=== PATIENT | female | born 1995 | race Caucasian/White ===

== ENCOUNTER 2021-04-12 09:40 | Inpatient (IN) | payer MEDICAID ==
[2021-04-12] MEDS ORDERED: Ampicillin 2 GM in Sodium Chloride 0.9% 100 ML IV ONE (10:33)
[2021-04-12] MEDS ORDERED: Nalbuphine 10 MG/1 ML Vial IVPUSH PRN (10:33)
[2021-04-12] MEDS ORDERED: Sodium Chloride 0.9% 10 ML Syringe FLUSH PRN (10:33)
[2021-04-12] MEDS ORDERED: Oxytocin/Lactated Ringers 10 UNIT/1,000 ML BAG IV SCH ×2 (10:45)
[2021-04-12] MEDS: Lactated Ringers 1,000 ML IV SCH ×2 (11:25→20:45)
--- NOTE | 2021-04-12 12:07 | PCM.LDHP ---
L&D History of Present Illness - General Date of Service: 04/12/21 Admit Problem/Dx: Patient Status Order with Admit Dx/Problem 04/12/21 10:33 Patient Status [ADT] Routine Admission Diagnosis/Problem Admission Diagnosis/Problem Source of Information: Patient History Limitations: Reports: No Limitations - History of Present Illness Introduction:: Sydney Ramsey is a 25-year-old -1-1-1 female at 37 weeks 5 days (NOEMI 04/28/2021) by a 20-week ultrasound who presents with spontaneous rupture of membranes. She reports that this morning at around 4 AM she got up out of bed and went to the restroom and then went to the kitchen for some water and had a large gush of clear fluid when she was in the kitchen. She has had continuous leaking of fluid since then. She describes the fluid as a clear color and no odor to it. She denies any vaginal bleeding. She denies any significant contractions or cramping since her water has broken. She reports good movement. Timing/Duration: Reports: sudden onset (With large gush of fluid at around 4 AM), constant/continuous (Leaking of fluid since the initial gush of fluid) Location, : Reports: Pelvic, Uterus Quality: Reports: Pressure Severity: Mild Improves with: Reports: None Worsens with: Reports: None Associated Symptoms: Reports: vaginal fluid, large amount. Denies: vaginal bleeding, vaginal discharge Present Illness Comments:: Sydney Ramsey is a 25-year-old -1-1-1 female at 37 weeks 5 days (NOEMI 04/28/2021) by a 20-week ultrasound who presents with spontaneous rupture of membranes. She has had routine care with Dr. Escobar starting at 18 weeks gestational age. She had her final due date based on a 20-week ultrasoun d. She has not had any significant complications during this . Her care is with Dr. 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 G1: SAB in 2018 G2: 03/05/2020, at 28 weeks 2 days, 2 pounds 12.1 ounces, female infant, epidural for anesthesia, prelabor rupture of membranes with onset of labor within 24 hours labs Blood type: O+ Antibody screen: Negative Rubella status: Immune Hepatitis B surface antigen: Negative RPR: Negative Hepatitis C: Negative HIV: Negative Gonorrhea: Negative Chlamydia: Negative One hour glucose tolerance test: 105 Second trimester hemoglobin: 12.2 on 12/23/2020 Platelets: 216 on 12/23/2020 GBS status: Positive on swab on 04/07/2021 - Related Data Allergies/Adverse Reactions: Allergies Allergy/AdvReac Type Severity Reaction Status Date / Time No Known Allergies Allergy Verified 04/12/21 10:31 Home Medications: Home Meds 105/Iron/Folic AC/Dha [Prena1 True Combo Pack] 1 tab PO DAILY 04/12/21 [History] Past Medical History - Past Health History Medical/Surgical History: Denies Medical/Surgical History 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: Reports: : 3 Para: 1 - Past Surgical History HEENT Surgical History: Reports: Adenoidectomy, Tonsillectomy Musculoskeletal Surgical History: Reports: Arthroscopic Procedure (Left knee surgery) Social & Family History - Tobacco Use Tobacco Use Status *Q: Former Tobacco User Tobacco Use Within Last Twelve Months: Cigarettes Used Tobacco, but Quit: Yes - Tobacco Core Measures Tobacco Use/Smoking Within Last 30 Days: No Smokeless Tobacco Use in Last 30 Days: No - Alcohol Use Alcohol Use History: No - Recreational Drug Use Recreational Drug Use: No Drug Use in Last 12 Months: No - Living Situation & Occupation Living situation: Reports: Single, with Significant Other H&P Review of Systems - Review of Systems: Review Of Systems: See Below General: Denies: Fever, Chills, Malaise, Weakness, Fatigue HEENT: Denies: Headaches, Rhinitis, Post Nasal Drip, Sinus Congestion, Sore Throat, Visual Changes Pulmonary: Denies: Shortness of Breath, Wheezing, Pleuritic Chest Pain, Cough Cardiovascular: Denies: Chest Pain, Palpitations, Dyspnea on Exertion, Orthopnea Gastrointestinal: Denies: Abdominal Pain, Constipation, Diarrhea, Nausea, Vomiting Genitourinary: Denies: Dysuria, Frequency, Burning, Pain, Urgency Musculoskeletal: Reports: Back Pain (and hip pain of ) Skin: Denies: Rash, Lesions Psychiatric: Denies: Depression, Anxiety L&D Exam - Exam Exam: See Below - Vital Signs Weight: 87.997 kg - OB Specific Contraction Duration (sec): 45-75 Contraction Frequency (min): 1-5 Contraction Intensity: Mild to Moderate Movement: Active Heart Tones: Present Heart Tones per Min: 130 (+15 x 15 accelerations, no decelerations) Heart Rate (FHR) Variability: Moderate (6-25 bmp) Presentation: Vertex Estimated Weight: 6.5-7 pounds by Shakir's - Alegria Score Alegria Score Cervix Position: Posterior Alegria Score Consistency: Soft Alegria Score Effacement: 51-70% (70%) Alegria Score Dilation: > 5 cm (5 cm) Alegria Score 's Station: -3 Alegria Score Total: 7 - Exam General: Alert, Oriented HEENT: Conjunctiva Clear, EOMI Neck: Supple, Trachea Midline Lungs: Clear to Auscultation, Normal Respiratory Effort Cardiovascular: Regular Rate, Regular Rhythm GI/Abdominal Exam: Soft, Non-Tender, No Distention, Other (Gravid). No: Guardin g, Rigid, Rebound Genitourinary: Normal external exam Extremities: Normal Inspection, Non-Tender, Pedal Edema (1+ in bilateral lower extremities) Skin: Warm, Dry, Intact Psychiatric: Alert, Normal Affect, Normal Mood - Patient Data Lab Results Last 24 hrs: Laboratory Results - last 24 hr 04/12/21 04/12/21 04/12/21 Range/Units 10:25 10:50 10:52 WBC 9.19 (3.98-10.04) K/mm3 RBC 4.40 (3.98-5.22) M/mm3 Hgb 13.1 (11.2-15.7) gm/dl Hct 38.7 (34.1-44.9) % MCV 88.0 (79.4-94.8) fl MCH 29.8 (25.6-32.2) pg MCHC 33.9 (32.2-35.5) g/dl RDW Std Deviation 40.3 (36.4-46.3) fL Plt Count 231 (182-369) K/mm3 MPV 9.7 (9.4-12.3) fl Neut % (Auto) 72.7 H (34.0-71.1) % Lymph % (Auto) 19.4 (19.3-51.7) % Wirt % (Auto) 6.5 (4.7-12.5) % Eos % (Auto) 0.9 (0.7-5.8) Baso % (Auto) 0.1 (0.1-1.2) % Neut # (Auto) 6.68 H (1.56-6.13) K/mm3 Lymph # (Auto) 1.78 (1.18-3.74) K/mm3 Wirt # (Auto) 0.60 H (0.24-0.36) K/mm3 Eos # (Auto) 0.08 (0.04-0.36) K/mm3 Baso # (Auto) 0.01 (0.01-0.08) K/mm3 Urine Opiates Screen Negative (QMDMXC=452) Ur Buprenorphine Scrn Negative (CUTOFF=10) Ur Oxycodone Screen Negative (WSL6XW=556) Urine Methadone Screen Negative (BUGEGB=790) Ur Propoxyphene Screen Negative (LAMVLP=064) Ur Barbiturates Screen Negative (APBSLQ=487) Ur Tricyclics Screen Negative (OUVSHC=668) Ur Phencyclidine Scrn Negative (CUTOFF=25) Ur Amphetamine Screen Negative (YUQVDO=948) U Methamphetamines Scrn Negative (ZTCPPG=572) U Benzodiazepines Scrn Negative (CQPQIF=421) U Cocaine Metab Screen Negative (MDMKNA=542) U Marijuana (THC) Screen Negative (CUTOFF=50) SARS-CoV-2 RNA (LALI) Negative (NEGATIVE) Result Diagrams: 04/12/21 10:52 - Problem List (1) 37 weeks gestation of SNOMED Code(s): 24016438 ICD Code: Z3A.37 - 37 WEEKS GESTATION OF Status: Acute Current Visit: Yes (2) GBS (group B Streptococcus carrier), +RV culture, currently SNOMED Code(s): 7334410768827, 569876015, 8598401749567 ICD Code: O99.820 - STREPTOCOCCUS B CARRIER STATE COMPLICATING Status: Acute Current Visit: Yes (3) History of drug abuse SNOMED Code(s): 192763454 ICD Code: F19.11 - OTHER PSYCHOACTIVE SUBSTANCE ABUSE, IN REMISSION Status: Acute Current Visit: Yes (4) History of delivery SNOMED Code(s): 271554910 ICD Code: Z87.51 - PERSONAL HISTORY OF PRE-TERM LABOR Status: Acute Current Visit: Yes (5) History of delivery, currently in third trimester SNOMED Code(s): 04799906, 82924999 ICD Code: O09.893 - SUPERVISION OF OTHER HIGH RISK PREGNANCIES, THIRD TRIMESTER Status: Acute Current Visit: Yes Problem List Initiated/Reviewed/Updated: Yes Orders Last 24hrs: Active Orders 24 hr Category Date Time Status Patient Status [ADT] Routine ADT 04/12/21 10:33 Active Activity as Tolerated [RC] PFP Care 04/12/21 10:33 Active Communication Order [RC] ASDIRECTED Care 04/12/21 10:33 Active Heart Tones [RC] ASDIRECTED Care 04/12/21 10:34 Active Non Stress Test [RC] PER UNIT ROUTINE Care 04/12/21 10:33 Active Notify Provider [RC] PFP Care 04/12/21 10:33 Active Notify Provider [RC] PRN Care 04/12/21 10:33 Active Peripheral IV Care [RC] . DIRECTED Care 04/12/21 10:34 Active Pump Management, Intrathecal [RC] ASDIRECTED Care 04/12/21 10:35 Active Urinary Catheter Assessment [RC] ASDIRECTED Care 04/12/21 10:33 Active Vital Signs [RC] PER UNIT ROUTINE Care 04/12/21 10:33 Active Regular Diet [DIET] Diet 04/12/21 Breakfast Active RAPID PLASMA REAGIN,RPR [CHEM] Routine Lab 04/12/21 10:52 Received TYPE AND SCREEN [BBK] Stat Lab 04/12/21 10:52 Received Ampicillin 1 gm Med 04/12/21 14:00 Active Sodium Chloride 0.9% [Normal Saline] 100 ml IV Q4H Lactated Ringers [Ringers, Lactated] 1,000 ml Med 04/12/21 10:45 Active IV ASDIRECTED Nalbuphine [Nubain] Med 04/12/21 10:33 Active 10 mg IVPUSH Q2H PRN Oxytocin/Lactated Ringers [Pitocin in LR 10 Units/1,000 Med 04/12/21 10:45 Active ML] 10 unit in 1,000 ml IV .CONTINUOUS Oxytocin/Lactated Ringers [Pitocin in LR 10 Units/1,000 Med 04/12/21 10:45 Active ML] 10 unit in 1,000 ml IV TITRATE Sodium Chloride 0.9% [Saline Flush] Med 04/12/21 10:33 Active 10 ml FLUSH ASDIRECTED PRN Electronic Heart Tones Ext w TOCO [WOMSER] Oth 04/12/21 10:33 Ordered Routine Electronic Heart Tones Internal [WOMSER] Per Unit Oth 04/12/21 10:33 Ordered Routine Peripheral IV Insertion Adult [OM.PC] Routine Oth 04/12/21 10:33 Ordered Resuscitation Status Routine Resus Stat 04/12/21 10:33 Ordered Medication Orders Ampicillin Sodium 1 gm/ Sodium (Chloride) 100 mls @ 200 mls/hr IV Q4H HEATHER Oxytocin/Lactated Ringer's (Pitocin In Lr 10 Units/1,000 Ml) 10 unit in 1,000 mls @ 12 mls/hr IV TITRATE HEATHER; Protocol Oxytocin/Lactated Ringer's (Pitocin In Lr 10 Units/1,000 Ml) 10 unit in 1,000 mls @ 500 mls/hr IV .CONTINUOUS HEATHER Lactated Ringer's (Ringers, Lactated) 1,000 mls @ 100 mls/hr IV ASDIRECTED HEATHER Last Admin: 04/12/21 11:25 Dose: 100 mls/hr Documented by: SIDNEY Nalbuphine HCl (Nalbuphine 10 Mg/1 Ml Vial) 10 mg IVPUSH Q2H PRN PRN Reason: Pain Sodium Chloride (Sodium Chloride 0.9% 10 Ml Syringe) 10 ml FLUSH ASDIRECTED PRN PRN Reason: Keep Vein Open Assessment/Plan Comment:: Sydney Ramsey is a 25-year-old -1-1-1 female at 37 weeks 5 days with spontaneous rupture of membranes with complicated by GBS positive status, history of drug use, history of incarceration and history of delivery due to PPROM Refer to observation for spontaneous rupture of membranes Start Pitocin for augmentation of labor if contractions continue to be irregular and nonpainful and the patient is not making cervical change. Recommend for patient to start Pitocin at this time but patient is considering options. Continuous monitoring Place IV and have Lactated Ringer's at 125 ml/hr May have small amounts of regular diet Activity as tolerated May have epidural as desired Plans to pump breastmilk for feeding infant after delivery Patient started on ampicillin 2 g and to have 1 g every 4 hours after for GBS prophylaxis Anticipate vaginal delivery unless otherwise indicated Jens Adams MD 12:14 PM 04/12/2021
[2021-04-12] MEDS: Ampicillin 1 GM in Sodium Chloride 0.9% 100 ML IV SCH ×3 (15:31→23:20)
--- NOTE | 2021-04-12 19:10 | PCM.PNLD ---
Labor Progress Note - VS & Meds Vital Signs: Last Vital Signs Temp 37.0 C 04/12/21 10:33 Pulse 62 04/12/21 12:35 Resp BP 118/77 04/12/21 10:33 Pulse Ox Active Medications: Current Medications Ampicillin Sodium 1 gm/ Sodium (Chloride) 100 mls @ 200 mls/hr IV Q4H HEATHER Last Admin: 04/12/21 15:31 Dose: 200 mls/hr Documented by: Oxytocin/Lactated Ringer's (Pitocin In Lr 10 Units/1,000 Ml) 10 unit in 1,000 mls @ 12 mls/hr IV TITRATE HEATHER; Protocol Last Titration: 04/12/21 18:45 Dose: 12 munits/min, 72 mls/hr Documented by: Oxytocin/Lactated Ringer's (Pitocin In Lr 10 Units/1,000 Ml) 10 unit in 1,000 mls @ 500 mls/hr IV .CONTINUOUS HEATHER Lactated Ringer's (Ringers, Lactated) 1,000 mls @ 100 mls/hr IV ASDIRECTED HEATHER Last Admin: 04/12/21 11:25 Dose: 100 mls/hr Documented by: Nalbuphine HCl (Nalbuphine 10 Mg/1 Ml Vial) 10 mg IVPUSH Q2H PRN PRN Reason: Pain Sodium Chloride (Sodium Chloride 0.9% 10 Ml Syringe) 10 ml FLUSH ASDIRECTED PRN PRN Reason: Keep Vein Open Discontinued Medications Ampicillin Sodium 2 gm/ Sodium (Chloride) 100 mls @ 200 mls/hr IV ONETIME ONE Stop: 04/12/21 11:02 Last Admin: 04/12/21 11:26 Dose: 200 mls/hr Documented by: - Uterine Contractions Contraction Frequency (min): 1-5 Contraction Duration (sec): 45-75 Contraction Intensity: Moderate Uterine Resting Tone: Soft - Monitoring Monitor Mode: Doppler/Auscultation Heart Rate (FHR) Baseline: 125 Heart Rate (FHR) Per Doppler: 125 Heart Rate (FHR) Variability: Moderate (6-25 bmp) Accelerations: Present, 15x15 Decelerations: None Strip Review: Category I - Vaginal Exam Dilation (cm): 5-6 cm Effacement (Percent): 80% Station: -2 Sterile Vaginal Exam Performed By: Jens Adams - Labor Progress (Free Text) Labor Progress: Sydney Ramsey is a 25-year-old -1-1-1 female at 37 weeks 5 days with spontaneous rupture membranes with complicated by GBS positive status, history of drug use, history of incarceration and history of delivery due to PPROM Patient making slow progress at this time Patient only having 0.5 to 1 cm change in cervical dilation from approximately 3:30 PM On Pitocin at this time and increasing dose to try to get regular and more forceful contraction pattern Not feeling significant pressure or pain with contractions at this time Continuing on ampicillin for GBS prophylaxis Routine vitals Continue to increase Pitocin for regularity of contraction pattern Anticipate vaginal delivery unless otherwise indicated Jens Adams MD 7:12 PM 04/12/2021
[2021-04-12] MEDS ORDERED: fentaNYL 100 MCG/2 ML SDV EPIDUR PRN (20:16)
[2021-04-12] MEDS ORDERED: ePHEDrine 50 MG/ML SDV IVPUSH PRN (20:16)
[2021-04-12] MEDS ORDERED: diphenhydrAMINE 50 MG/ML SDV IVPUSH PRN (20:16)
[2021-04-12] MEDS ORDERED: Bupivacaine/fentaNYL/NS 100 ML Bag EPIDUR PRN (20:16)
--- NOTE | 2021-04-12 20:18 | PCM.PREANE ---
Preanesthetic Assessment - Procedure Proposed Procedure: Labor epidural - Anesthesia/Transfusion/Family Hx Anesthesia History: Prior Anesthesia Without Reaction Family History of Anesthesia Reaction: No Transfusion History: No Prior Transfusion(s) Intubation History: Unknown - Review of Systems General: No Symptoms Pulmonary: No Symptoms Cardiovascular: No Symptoms Gastrointestinal: No Symptoms Neurological: No Symptoms Other: Reports: Anxiety - Physical Assessment NPO Status Date: 04/12/21 NPO Status Time: 17:30 Vital Signs: Last Vital Signs Temp 98.6 F 04/12/21 10:33 Pulse 62 04/12/21 12:35 Resp BP 118/77 04/12/21 10:33 Pulse Ox RR 15 Sats 97 BP 118/77 HR 62 98.6 Height: 1.78 m Weight: 87.997 kg ASA Class: 2 Mental Status: Alert & Oriented x3 Airway Class: Mallampati = 1 Dentition: Reports: Normal Dentition Thyro-Mental Finger Breadths: 3 Mouth Opening Finger Breadths: 3 ROM/Head Extension: Full Lungs: Clear to Auscultation, Normal Respiratory Effort Cardiovascular: Regular Rate, Regular Rhythm - Lab Values: Laboratory Last Values WBC 9.19 K/mm3 (3.98-10.04) 04/12/21 10:52 RBC 4.40 M/mm3 (3.98-5.22) 04/12/21 10:52 Hgb 13.1 gm/dl (11.2-15.7) 04/12/21 10:52 Hct 38.7 % (34.1-44.9) 04/12/21 10:52 MCV 88.0 fl (79.4-94.8) 04/12/21 10:52 MCH 29.8 pg (25.6-32.2) 04/12/21 10:52 MCHC 33.9 g/dl (32.2-35.5) 04/12/21 10:52 RDW Std Deviation 40.3 fL (36.4-46.3) 04/12/21 10:52 Plt Count 231 K/mm3 (182-369) 04/12/21 10:52 MPV 9.7 fl (9.4-12.3) 04/12/21 10:52 Neut % (Auto) 72.7 % (34.0-71.1) H 04/12/21 10:52 Lymph % (Auto) 19.4 % (19.3-51.7) 04/12/21 10:52 Churchill % (Auto) 6.5 % (4.7-12.5) 04/12/21 10:52 Eos % (Auto) 0.9 (0.7-5.8) 04/12/21 10:52 Baso % (Auto) 0.1 % (0.1-1.2) 04/12/21 10:52 Neut # (Auto) 6.68 K/mm3 (1.56-6.13) H 04/12/21 10:52 Lymph # (Auto) 1.78 K/mm3 (1.18-3.74) 04/12/21 10:52 Churchill # (Auto) 0.60 K/mm3 (0.24-0.36) H 04/12/21 10:52 Eos # (Auto) 0.08 K/mm3 (0.04-0.36) 04/12/21 10:52 Baso # (Auto) 0.01 K/mm3 (0.01-0.08) 04/12/21 10:52 Urine Opiates Screen Negative (EJDOJM=707) 04/12/21 10:50 Ur Buprenorphine Scrn Negative (CUTOFF=10) 04/12/21 10:50 Ur Oxycodone Screen Negative (GAS5UF=712) 04/12/21 10:50 Urine Methadone Screen Negative (GMPCSO=508) 04/12/21 10:50 Ur Propoxyphene Screen Negative (ISWMMW=612) 04/12/21 10:50 Ur Barbiturates Screen Negative (GTSNEM=156) 04/12/21 10:50 Ur Tricyclics Screen Negative (YBSVZD=357) 04/12/21 10:50 Ur Phencyclidine Scrn Negative (CUTOFF=25) 04/12/21 10:50 Ur Amphetamine Screen Negative (GSLYMA=177) 04/12/21 10:50 U Methamphetamines Scrn Negative (PXPDXH=918) 04/12/21 10:50 U Benzodiazepines Scrn Negative (KLBRUA=905) 04/12/21 10:50 U Cocaine Metab Screen Negative (FSXJZT=652) 04/12/21 10:50 U Marijuana (THC) Screen Negative (CUTOFF=50) 04/12/21 10:50 RPR Non-reactive (NONREACTIVE) 04/12/21 10:52 SARS-CoV-2 RNA (LALI) Negative (NEGATIVE) 04/12/21 10:25 Blood Type O POSITIVE 04/12/21 10:52 Gel Antibody Screen Negative 04/12/21 10:52 Labs reviewed and okay to proceed - Allergies Allergies/Adverse Reactions: Allergies Allergy/AdvReac Type Severity Reaction Status Date / Time No Known Allergies Allergy Verified 04/12/21 10:31 - Blood Blood Available: No Product(s) Available: None - Anesthesia Plan Pre-Op Medication Ordered: None - Acknowledgements Anesthesia Type Planned: Epidural Pt an Appropriate Candidate for the Planned Anesthesia: Yes Alternatives and Risks of Anesthesia Discussed w Pt/Guardian: Yes Pt/Guardian Understands and Agrees with Anesthesia Plan: Yes PreAnesthesia Questionnaire - Past Health History Medical/Surgical History: Denies 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: Psychiatric History: Reports: Anxiety - Past Surgical History HEENT Surgical History: Reports: Adenoidectomy, Tonsillectomy Musculoskeletal Surgical History: Reports: Arthroscopic Procedure (Left knee surgery) - SUBSTANCE USE Tobacco Use Status *Q: Former Tobacco User Tobacco Use Within Last Twelve Months: Cigarettes Second Hand Smoke Exposure: No Days Per Week of Alcohol Use: 0 Number of Drinks Per Day: 0 Total Drinks Per Week: 0 Recreational Drug Use History: No Recreational Drug Type: Reports: Methamphetamine Recreational Drug Last Use: June 2020 - HOME MEDS Home Medications: Home Meds 105/Iron/Folic AC/Dha [Prena1 True Combo Pack] 1 tab PO DAILY 04/12/21 [History] - CURRENT (IN HOUSE) MEDS Current Meds: Current Medications Ampicillin Sodium 1 gm/ Sodium (Chloride) 100 mls @ 200 mls/hr IV Q4H HEATHER Last Admin: 04/12/21 19:36 Dose: 200 mls/hr Documented by: Oxytocin/Lactated Ringer's (Pitocin In Lr 10 Units/1,000 Ml) 10 unit in 1,000 mls @ 12 mls/hr IV TITRATE HEATHER; Protocol Last Titration: 04/12/21 19:37 Dose: 14 munits/min, 84 mls/hr Documented by: Oxytocin/Lactated Ringer's (Pitocin In Lr 10 Units/1,000 Ml) 10 unit in 1,000 mls @ 500 mls/hr IV .CONTINUOUS HEATHER Lactated Ringer's (Ringers, Lactated) 1,000 mls @ 100 mls/hr IV ASDIRECTED HEATHER Last Admin: 04/12/21 11:25 Dose: 100 mls/hr Documented by: Nalbuphine HCl (Nalbuphine 10 Mg/1 Ml Vial) 10 mg IVPUSH Q2H PRN PRN Reason: Pain Sodium Chloride (Sodium Chloride 0.9% 10 Ml Syringe) 10 ml FLUSH ASDIRECTED PRN PRN Reason: Keep Vein Open Discontinued Medications Ampicillin Sodium 2 gm/ Sodium (Chloride) 100 mls @ 200 mls/hr IV ONETIME ONE Stop: 04/12/21 11:02 Last Admin: 04/12/21 11:26 Dose: 200 mls/hr Documented by:
[2021-04-13] MEDS ORDERED: Bupivacaine 0.25% 10 ML SDV ONE
--- NOTE | 2021-04-13 00:35 | PCM.DEL ---
L & D Note - General Info Date of Service: 04/13/21 Mother's Due Date: 04/28/21 - Delivery Note Labor: Spontaneous, Augmented by ARM, Augmented by Oxytocin Cervical Ripening Method: Oxytocin Delivery Outcome: Livebirth Delivery Method: Spontaneous Vaginal Delivery-Single Presentation: Right Occiput Anterior (KAVYA) Nuchal Cord: None Prep: Povidone-Iodine (Betadine Anesthesia Type: Epidural Amniotic Fluid Description: Clear Episiotomy Type: None Laceration: 1st Degree (bilateral medial labia minora lacerations, hemostatic, not repaired), Perineal (first degree left perineal skin laceration that was not repaired) Placenta: Intact, Spontaneous Cord: 3 Vessels Estimated Blood Loss: 200 Resuscitation Needed: Yes : Bulb Syringe, Stimulated, Warmed, Climax Used Provider: Malissa Chavez Score 1 min: 9 Score 5 min: 9 Second Stage Interventions: Reports: Pushing Effectively, Pushing, Stirrups/Leg Supports Delivery Comments (Free Text/Narrative):: Stage I: Sydney Ramsey was admitted for spontaneous rupture membranes with clear fluid. On admission her cervix was dilated to 3 to 4 cm. She was GBS positive and was started on ampicillin for GBS prophylaxis. She received a total of 4 doses prior to delivery. She was making slow progress with irregular contractions and was started on Pitocin for augmentation of labor. She had artificial rupture membranes of a fore bag. She was given an epidural for anesthesia. She progressed to complete and pushing. Stage II: On 04/13/2021 she had a normal vaginal delivery of a live male at 00:04. Apgars of 9 & 9. Weight of 3390 g (7 lbs 7.6 oz). Length of 20.0 inches. There was no nuchal cord. Infant was delivered in KAVYA position. The cord was doubly clamped and cut by grandmother of the . Infant was placed on mother's abdomen. Stage III: She had a spontaneous delivery of an intact placenta in Nicolle presentation. Three vessel cord. She was given pitocin and fundal massage. She had bilateral medial labia minora lacerations that were hemostatic and not repaired. She had a first-degree laceration on the left perineum skin that was hemostatic and not repaired. Mom and baby were stable to recovery. EBL of 200 mL. Jens Adams MD 12:34 AM 04/13/2021 - General Info Date of Service: 04/13/21 - Patient Data Vitals - Most Recent: Last Vital Signs Temp 37.0 C 04/12/21 10:33 Pulse 62 04/12/21 12:35 Resp BP 118/77 04/12/21 10:33 Pulse Ox Weight - Most Recent: 87.997 kg I&O - Last 24 Hours: Intake & Output 04/12/21 04/12/21 04/13/21 14:59 22:59 06:59 Output Total 50 Balance @ -50 Lab Results Last 24 Hours: Laboratory Results - last 24 hr 04/12/21 04/12/21 04/12/21 Range/Units 10:25 10:50 10:52 WBC (3.98-10.04) K/mm3 RBC (3.98-5.22) M/mm3 Hgb (11.2-15.7) gm/dl Hct (34.1-44.9) % MCV (79.4-94.8) fl MCH (25.6-32.2) pg MCHC (32.2-35.5) g/dl RDW Std Deviation (36.4-46.3) fL Plt Count (182-369) K/mm3 MPV (9.4-12.3) fl Neut % (Auto) (34.0-71.1) % Lymph % (Auto) (19.3-51.7) % [place] % (Auto) (4.7-12.5) % Eos % (Auto) (0.7-5.8) Baso % (Auto) (0.1-1.2) % Neut # (Auto) (1.56-6.13) K/mm3 Lymph # (Auto) (1.18-3.74) K/mm3 [place] # (Auto) (0.24-0.36) K/mm3 Eos # (Auto) (0.04-0.36) K/mm3 Baso # (Auto) (0.01-0.08) K/mm3 Urine Opiates Screen Negative (NWELQT=630) Ur Buprenorphine Scrn Negative (CUTOFF=10) Ur Oxycodone Screen Negative (SLB3VF=953) Urine Methadone Screen Negative (DKSGTD=205) Ur Propoxyphene Screen Negative (UBYKBF=424) Ur Barbiturates Screen Negative (CIAJKJ=622) Ur Tricyclics Screen Negative (LIXUUA=419) Ur Phencyclidine Scrn Negative (CUTOFF=25) Ur Amphetamine Screen Negative (ZPIPAT=562) U Methamphetamines Scrn Negative (WSFXCX=821) U Benzodiazepines Scrn Negative (OFHEUR=041) U Cocaine Metab Screen Negative (CUOWBZ=172) U Marijuana (THC) Screen Negative (CUTOFF=50) RPR Non-reactive (NONREACTIVE) SARS-CoV-2 RNA (LALI) Negative (NEGATIVE) Blood Type Gel Antibody Screen 04/12/21 04/12/21 Range/Units 10:52 10:52 WBC 9.19 (3.98-10.04) K/mm3 RBC 4.40 (3.98-5.22) M/mm3 Hgb 13.1 (11.2-15.7) gm/dl Hct 38.7 (34.1-44.9) % MCV 88.0 (79.4-94.8) fl MCH 29.8 (25.6-32.2) pg MCHC 33.9 (32.2-35.5) g/dl RDW Std Deviation 40.3 (36.4-46.3) fL Plt Count 231 (182-369) K/mm3 MPV 9.7 (9.4-12.3) fl Neut % (Auto) 72.7 H (34.0-71.1) % Lymph % (Auto) 19.4 (19.3-51.7) % [place] % (Auto) 6.5 (4.7-12.5) % Eos % (Auto) 0.9 (0.7-5.8) Baso % (Auto) 0.1 (0.1-1.2) % Neut # (Auto) 6.68 H (1.56-6.13) K/mm3 Lymph # (Auto) 1.78 (1.18-3.74) K/mm3 [place] # (Auto) 0.60 H (0.24-0.36) K/mm3 Eos # (Auto) 0.08 (0.04-0.36) K/mm3 Baso # (Auto) 0.01 (0.01-0.08) K/mm3 Urine Opiates Screen (RWGKUZ=219) Ur Buprenorphine Scrn (CUTOFF=10) Ur Oxycodone Screen (FOE2WR=129) Urine Methadone Screen (VZYNUT=323) Ur Propoxyphene Screen (QDFIWG=811) Ur Barbiturates Screen (VLEAKK=096) Ur Tricyclics Screen (TAOKPJ=973) Ur Phencyclidine Scrn (CUTOFF=25) Ur Amphetamine Screen (ELBQUC=230) U Methamphetamines Scrn (WXUSXK=410) U Benzodiazepines Scrn (QJPXWO=499) U Cocaine Metab Screen (YJDBAT=325) U Marijuana (THC) Screen (CUTOFF=50) RPR (NONREACTIVE) SARS-CoV-2 RNA (LALI) (NEGATIVE) Blood Type O POSITIVE Gel Antibody Screen Negative Med Orders - Current: Current Medications Diphenhydramine HCl (Diphenhydramine 50 Mg/Ml Sdv) 25 mg IVPUSH Q6H PRN PRN Reason: pruritis Ephedrine Sulfate (Ephedrine 50 Mg/Ml Sdv) 5 mg IVPUSH ASDIRECTED PRN PRN Reason: Hypotension Fentanyl (Fentanyl 100 Mcg/2 Ml Sdv) 100 mcg EPIDUR Q3H PRN PRN Reason: Pain Last Admin: 04/12/21 20:30 Dose: 100 mcg Documented by: Fentanyl/Bupivacaine HCl (Bupivacaine/Fentanyl/Ns 100 Ml Bag) 100 ml EPIDUR ASDIRECTED PRN PRN Reason: Pain Last Admin: 04/12/21 20:31 Dose: 100 ml Documented by: Ampicillin Sodium 1 gm/ Sodium (Chloride) 100 mls @ 200 mls/hr IV Q4H HEATHER Last Admin: 04/12/21 23:20 Dose: 200 mls/hr Documented by: Oxytocin/Lactated Ringer's (Pitocin In Lr 10 Units/1,000 Ml) 10 unit in 1,000 mls @ 12 mls/hr IV TITRATE HEATHER; Protocol Last Titration: 04/12/21 22:39 Dose: 18 munits/min, 108 mls/hr Documented by: Oxytocin/Lactated Ringer's (Pitocin In Lr 10 Units/1,000 Ml) 10 unit in 1,000 mls @ 500 mls/hr IV .CONTINUOUS HEATHER Lactated Ringer's (Ringers, Lactated) 1,000 mls @ 100 mls/hr IV ASDIRECTED HEATHER Last Admin: 04/12/21 20:45 Dose: 100 mls/hr Documented by: Nalbuphine HCl (Nalbuphine 10 Mg/1 Ml Vial) 10 mg IVPUSH Q2H PRN PRN Reason: Pain Sodium Chloride (Sodium Chloride 0.9% 10 Ml Syringe) 10 ml FLUSH ASDIRECTED PRN PRN Reason: Keep Vein Open Discontinued Medications Ampicillin Sodium 2 gm/ Sodium (Chloride) 100 mls @ 200 mls/hr IV ONETIME ONE Stop: 04/12/21 11:02 Last Admin: 04/12/21 11:26 Dose: 200 mls/hr Documented by: - Exam Urinary Catheter Total Time: 0Days 1Hours - Problem List & Annotations (1) 37 weeks gestation of SNOMED Code(s): 32292085 Code(s): Z3A.37 - 37 WEEKS GESTATION OF Status: Acute Current Visit: Yes (2) GBS (group B Streptococcus carrier), +RV culture, currently SNOMED Code(s): 9942833246110, 376914539, 1566415407100 Code(s): O99.820 - STREPTOCOCCUS B CARRIER STATE COMPLICATING Status: Acute Current Visit: Yes (3) History of drug abuse SNOMED Code(s): 624303134 Code(s): F19.11 - OTHER PSYCHOACTIVE SUBSTANCE ABUSE, IN REMISSION Status: Acute Current Visit: Yes (4) History of delivery SNOMED Code(s): 270604740 Code(s): Z87.51 - PERSONAL HISTORY OF PRE-TERM LABOR Status: Acute Current Visit: Yes (5) History of delivery, currently in third trimester SNOMED Code(s): 33675667, 24364611 Code(s): O09.893 - SUPERVISION OF OTHER HIGH RISK PREGNANCIES, THIRD TRIMESTER Status: Acute Current Visit: Yes (6) Vaginal delivery SNOMED Code(s): 393149812 Code(s): O80 - ENCOUNTER FOR FULL-TERM UNCOMPLICATED DELIVERY Status: Acute Current Visit: Yes (7) First degree perineal laceration during delivery SNOMED Code(s): 008450839 Code(s): O70.0 - FIRST DEGREE PERINEAL LACERATION DURING DELIVERY Status: Acute Current Visit: Yes - Problem List Review Problem List Initiated/Reviewed/Updated: Yes - My Orders Last 24 Hours: My Active Orders 04/12/21 Breakfast Regular Diet [DIET] 04/12/21 10:33 Patient Status [ADT] Routine Activity as Tolerated [RC] PFP Communication Order [RC] ASDIRECTED Notify Provider [RC] PFP Notify Provider [RC] PRN Urinary Catheter Assessment [RC] ASDIRECTED Nalbuphine [Nubain] 10 mg IVPUSH Q2H PRN Sodium Chloride 0.9% [Saline Flush] 10 ml FLUSH ASDIRECTED PRN Electronic Heart Tones Ext w TOCO [WOMSER] Routine Electronic Heart Tones Internal [WOMSER] Per Unit Routine Peripheral IV Insertion Adult [OM.PC] Routine Resuscitation Status Routine 04/12/21 10:34 Peripheral IV Care [RC] . DIRECTED 04/12/21 10:45 Lactated Ringers [Ringers, Lactated] 1,000 ml IV ASDIRECTED Oxytocin/Lactated Ringers [Pitocin in LR 10 Units/1,000 ML] 10 unit in 1,000 ml IV .CONTINUOUS Oxytocin/Lactated Ringers [Pitocin in LR 10 Units/1,000 ML] 10 unit in 1,000 ml IV TITRATE 04/12/21 12:42 Consult to Case Management/Vp Design [CONS] Routine 04/12/21 14:00 Ampicillin 1 gm Sodium Chloride 0.9% [Normal Saline] 100 ml IV Q4H 04/13/21 00:26 Patient Status Manage Transfer [TRANSFER] Routine - Plan Plan:: Sydney Ramsey is a 25-year-old G3 now P1-1-1-2 female status post , PPD #0, complicated by GBS positive status, history of drug use, history of incarceration and history of delivery due to PPROM Admit to inpatient following normal spontaneous vaginal delivery Continue Pitocin per unit protocol following delivery of placenta and lactated Ringer's until tolerating regular diet Regular diet Vitals per unit routine Ibuprofen and Tylenol for pain control Assist with bottlefeeding as needed Continue to monitor lochia creative services manager consult due to incarceration during and history of drug use Anticipate discharge home on day #1 Jens Adams MD 12:34 AM 04/13/2021
[2021-04-13] MEDS ORDERED: Hydrocortisone Acetate 25 MG Supp RECTAL PRN (01:16)
[2021-04-13] MEDS ORDERED: Oxytocin/Lactated Ringers 10 UNIT/1,000 ML BAG IV SCH (01:16)
[2021-04-13] MEDS ORDERED: Benzocaine/Menthol 20%-0.5% Spray 56 GM Canister TOP PRN (01:16)
[2021-04-13] MEDS ORDERED: Acetaminophen 325 MG Tab PO PRN (01:16)
[2021-04-13] MEDS ORDERED: Witch Hazel Medicated Pads 40/Jar TOP PRN (01:16)
[2021-04-13] MEDS: Ibuprofen 600 MG Tab PO PRN ×2 (01:29→16:03)
[2021-04-13] MEDS ORDERED: Prenatal Multivitamin with Calcium/Folic Acid/Iron Tab PO SCH (09:00)
--- NOTE | 2021-04-14 07:42 | PCM.DCSUM1 ---
Discharge Summary - Hospital Course Free Text/Narrative:: Doing well today. Expresses desire for discharge home. Ambulating without difficulty, voiding, tolerating diet. Social work has seen and has no concerns. Diagnosis: Stroke: No - Discharge Data Discharge Date: 04/14/21 Discharge Disposition: Home, Self-Care 01 Condition: Good - Referral to Home Health Primary Care Physician: Aleyda Escobar MD - Patient Summary/Data Consults: Consultations 04/12/21 12:42 Consult to Case Management/Nutritionists [CONS] Routine Hospital Course: Stage I: Sydney Ramsey was admitted for spontaneous rupture membranes with clear fluid. On admission her cervix was dilated to 3 to 4 cm. She was GBS positive and was started on ampicillin for GBS prophylaxis. She received a total of 4 doses prior to delivery. She was making slow progress with irregular contractions and was started on Pitocin for augmentation of labor. She had artificial rupture membranes of a fore bag. She was given an epidural for anesthesia. She progressed to complete and pushing. Stage II: On 04/13/2021 she had a normal vaginal delivery of a live male infant at 00:04. Apgars of 9 & 9. Weight of 3390 g (7 lbs 7.6 oz). Length of 20.0 inches. There was no nuchal cord. was delivered in KAVYA position. The cord was doubly clamped and cut by grandmother of the infant. Infant was placed on mother's abdomen. Stage III: She had a spontaneous delivery of an intact placenta in Nicolle presentation. Three vessel cord. She was given pitocin and fundal massage. She had bilateral medial labia minora lacerations that were hemostatic and not repaired. She had a first-degree laceration on the left perineum skin that was hemostatic and not repaired. Mom and baby were stable to recovery. EBL of 200 mL. - Patient Instructions Diet: Usual Diet as Tolerated Activity: No Strenuous Activities Driving: May Drive Today Showering/Bathing: May Shower Notify Provider of: Fever, Increased Pain, Swelling and Redness, Drainage, Nausea and/or Vomiting - Discharge Plan *PRESCRIPTION DRUG MONITORING PROGRAM REVIEWED*: No *COPY OF PRESCRIPTION DRUG MONITORING REPORT IN PATIENT TROY: No Home Medications: Home Meds 105/Iron/Folic AC/Dha [Prena1 True Combo Pack] 1 tab PO DAILY 04/12/21 [History] Referrals: Aleyda Escobar MD [Primary Care Provider] - (2 weeks) - Discharge Summary/Plan Comment DC Time >30 min.: No - Patient Data Vitals - Most Recent: Last Vital Signs Temp 36.4 C 04/14/21 03:37 Pulse 55 L 04/14/21 03:37 Resp 16 04/14/21 03:37 BP 133/85 04/14/21 03:37 Pulse Ox 97 04/14/21 03:37 Weight - Most Recent: 87.997 kg I&O - Last 24 hours: Intake & Output 04/13/21 04/14/21 04/14/21 22:59 06:59 14:59 Intake Total 240 Balance 240 Med Orders - Current: Current Medications Acetaminophen (Acetaminophen 325 Mg Tab) 650 mg PO Q6H PRN PRN Reason: mild pain or fever Last Admin: 04/14/21 03:56 Dose: 650 mg Documented by: Benzocaine/Menthol (Benzocaine/Menthol 20%-0.5% [place] 56 Gm Canister) 0 gm TOP ASDIRECTED PRN PRN Reason: Perineal Comfort Measure Last Admin: 04/13/21 01:29 Dose: 1 can Documented by: Hydrocortisone Acetate (Hydrocortisone Acetate 25 Mg Supp) 25 mg RECTAL BID PRN PRN Reason: Hemorrhoid pain Oxytocin/Lactated Ringer's (Pitocin In Lr 10 Units/1,000 Ml) 10 unit in 1,000 mls @ 100 mls/hr IV TITRATE HEATHER; Protocol Ibuprofen (Ibuprofen 600 Mg Tab) 600 mg PO Q6H PRN PRN Reason: Mild pain or fever Last Admin: 04/13/21 16:03 Dose: 600 mg Documented by: Prenat Multivit/[place]/Iron/Folic Ac ( Multivitamin With Calcium/Folic Acid/Iron Tab) 1 each PO DAILY HEATHER Last Admin: 04/13/21 15:54 Dose: 1 each Documented by: Benjamin Baires (Benjamin Baires Medicated Pads 40/Jar) 1 pad TOP ASDIRECTED PRN PRN Reason: Perineal Comfort Measure Last Admin: 04/13/21 01:29 Dose: 1 tub Documented by: Discontinued Medications Bupivacaine HCl (Bupivacaine 0.25% 10 Ml Sdv) 10 ml .ROUTE .STK-MED ONE Stop: 04/13/21 00:01 Diphenhydramine HCl (Diphenhydramine 50 Mg/Ml Sdv) 25 mg IVPUSH Q6H PRN PRN Reason: pruritis Ephedrine Sulfate (Ephedrine 50 Mg/Ml Sdv) 5 mg IVPUSH ASDIRECTED PRN PRN Reason: Hypotension Fentanyl (Fentanyl 100 Mcg/2 Ml Sdv) 100 mcg EPIDUR Q3H PRN PRN Reason: Pain Last Admin: 04/12/21 20:30 Dose: 100 mcg Documented by: Fentanyl/Bupivacaine HCl (Bupivacaine/Fentanyl/Ns 100 Ml Bag) 100 ml EPIDUR ASDIRECTED PRN PRN Reason: Pain Last Admin: 04/12/21 20:31 Dose: 100 ml Documented by: Ampicillin Sodium 2 gm/ Sodium (Chloride) 100 mls @ 200 mls/hr IV ONETIME ONE Stop: 04/12/21 11:02 Last Admin: 04/12/21 11:26 Dose: 200 mls/hr Documented by: Ampicillin Sodium 1 gm/ Sodium (Chloride) 100 mls @ 200 mls/hr IV Q4H HEATHER Last Admin: 04/12/21 23:20 Dose: 200 mls/hr Documented by: Oxytocin/Lactated Ringer's (Pitocin In Lr 10 Units/1,000 Ml) 10 unit in 1,000 mls @ 12 mls/hr IV TITRATE HEATHER; Protocol Last Titration: 04/13/21 00:05 Dose: 166.5 munits/min, 999 mls/hr Documented by: Oxytocin/Lactated Ringer's (Pitocin In Lr 10 Units/1,000 Ml) 10 unit in 1,000 mls @ 500 mls/hr IV .CONTINUOUS HEATHER Last Admin: 04/13/21 00:38 Dose: 500 mls/hr Documented by: Lactated Ringer's (Ringers, Lactated) 1,000 mls @ 100 mls/hr IV ASDIRECTED HEATHER Last Admin: 04/12/21 20:45 Dose: 100 mls/hr Documented by: Nalbuphine HCl (Nalbuphine 10 Mg/1 Ml Vial) 10 mg IVPUSH Q2H PRN PRN Reason: Pain Sodium Chloride (Sodium Chloride 0.9% 10 Ml Syringe) 10 ml FLUSH ASDIRECTED PRN PRN Reason: Keep Vein Open
== END 2021-04-14 11:15 | disposition home or self-care (01) | DRG 807 ==
LOC: JD.OBCHECK 09:40 → JD.OB 09:40 → JD.OBCHECK 10:33 → OBSVTOIN 04-13 00:04 → JD.OB 04-13 00:05
PROVIDERS: ADMIT Obstetrics & Gynecology; ATTEND Obstetrics & Gynecology
PROC: 10E0XZZ Delivery of Products of Conception, External Approach (ICD-10-PCS; principal; 2021-04-13)
PROC: 10907ZC Drainage of Amniotic Fluid, Therapeutic from Products of Conception, Via Natural or Artificial Opening (ICD-10-PCS; 2021-04-13)
PROC: 3E0R3BZ Introduction of Anesthetic Agent into Spinal Canal, Percutaneous Approach (ICD-10-PCS; 2021-04-13)
DX: O99.824 Streptococcus B carrier state complicating childbirth (principal); Z37.0 Single live birth; Z3A.37 37 weeks gestation of pregnancy; O70.0 First degree perineal laceration during delivery; Z87.891 Personal history of nicotine dependence; Z20.822 Contact with and (suspected) exposure to COVID-19
CPT/HCPCS: 01967; 36415; 51702; 59025; 59409; 80306; 85025; 86592; 86850; 86900; 86901; A9270-GY; J0290; J2590; J3010; J3490; J7120; U0002

== ENCOUNTER 2025-10-01 13:57 | Emergency (ER) | payer MEDICAID ==
[2025-10-01 14:46] LABS: BASOPHILS ABSOLUTE AUTO 0.0 K/mm3 (0.0-0.2); BASOPHILS PERCENT AUTO 0.2 % (0.0-1.0); EOSINOPHILS ABSOLUTE AUTO 0.0 K/mm3 (0.0-0.4); EOSINOPHILS PERCENT AUTO 0.2 % (0.0-6.0); IMMATURE GRAN ABSOLUTE AUTO 0.04 K/mm3 (0.00-0.05); IMMATURE GRAN PERCENT AUTO 0.3 % (0.0-0.4); LYMPHOCYTES ABSOLUTE AUTO 1.2 K/mm3 (1.0-4.8); LYMPHOCYTES PERCENT AUTO 10.0 % (24.0-44.0); MEAN PLATELET VOLUME 9.0 fl (9.4-12.3); MONOCYTES ABSOLUTE AUTO 0.4 K/mm3 (0.0-0.8); MONOCYTES PERCENT AUTO 3.4 % (0.0-8.0); NEUTROPHILS ABSOLUTE AUTO 10.0 K/mm3 (1.8-7.7); NEUTROPHILS PERCENT AUTO 85.9 % (41.0-71.0); NRBC ABSOLUTE 0.00 (0.00-0.02); NRBC PERCENT 0.0 % (0.0-0.2); PLATELET COUNT,PLT 319 K/mm3 (150-400); RED BLOOD CELL COUNT 4.30 M/mm3 (4.10-5.30); WHITE BLOOD CELL COUNT,WBC 11.63 K/mm3 (3.9-11.3)
[2025-10-01 15:16] LABS: BUPRENORPHINE SCREEN,URINE NEGATIVE (CUTOFF=10); METHADONE SCREEN, URINE NEGATIVE (CUTOFF=200); METHAMPHETAMINES SCREEN, URINE NEGATIVE (CUTOFF=500); OXYCODONE SCREEN,URINE NEGATIVE (CUT0FF=100); THC SCREEN,URINE 20 NG/ML PRESUMPTIVE POSITIVE (CUTOFF=50)
[2025-10-01 15:17] LABS: AMPHETAMINES SCREEN, URINE NEGATIVE (CUTOFF=500)
[2025-10-01 15:18] LABS: A/G RATIO 0.7 (1-2); ALANINE AMINOTRANSFERASE,ALT 35.0 U/L (14-59); ASPARTATE AMNIOTRANSFERASE,AST 31.0 U/L (15-37); BILIRUBIN TOTAL 0.3 mg/dL (0.2-1.0); BLOOD UREA NITROGEN,BUN 9.0 mg/dL (7-18); CARBON DIOXIDE,CO2 25.0 mEq/L (21-32); CHLORIDE,CL 104.0 mEq/L (98-107); CREATININE 0.8 mg/dL (0.55-1.02); EST CRCL DRUG DOSING (CG) 112.2 mL/min; ESTIMATED GFR 102.0 mL/min (>60); GLUCOSE RANDOM 141.0 mg/dL (70-99); POTASSIUM,K 3.9 mEq/L (3.5-5.1); PROTEIN TOTAL,TP 6.5 g/dl (6.4-8.2); SODIUM,NA 139.0 mEq/L (136-145); TSH 2.695 uIU/mL (0.358-3.74)
[2025-10-01 15:20] LABS: ETHANOL BLOOD MEDICAL 0.0 gm% (0.00)
== END 2025-10-01 18:15 | disposition other institution (70) ==
LOC: JD.ED 13:57
DX: F12.10 Cannabis abuse, uncomplicated (principal); Z90.89 Acquired absence of other organs
CPT/HCPCS: 36415; 80053; 80143; 80179; 80306; 80307; 84443; 85025; 93005; 99285